=== PATIENT | male | born 1955 | race Caucasian/White ===

== ENCOUNTER 2016-05-12 07:52 | Day surgery (SDC) | payer BC ==
[~2016-05-12 07:52] MED LIST: LIDOCAINE HCL 1% MPF SOL ONE; PROPOFOL 500 MG/50 ML EMU IV ONE
[2016-05-12] MEDS ORDERED: GLYCOPYRROLATE 0.2 MG/ML SOL ONE (09:35)
[2016-05-12 10:38] VITALS: BP 132/83; PULSE 63; RESP 20; TEMP 97.3; O2SAT 95
== END 2016-05-12 10:48 | disposition home or self-care (01) ==
LOC: SURG 07:52
PROVIDERS: ATTEND Surgery
DX: Z12.11 Encounter for screening for malignant neoplasm of colon (principal); Z86.010 Personal history of colon polyps; Z80.0 Family history of malignant neoplasm of digestive organs; K57.30 Diverticulosis of large intestine without perforation or abscess without bleeding; D12.2 Benign neoplasm of ascending colon; D12.4 Benign neoplasm of descending colon; D12.3 Benign neoplasm of transverse colon
CPT/HCPCS: 45385; 99001; J2001 ×2; J2704 ×2; 82962